=== PATIENT | male | born 2000 | race Caucasian/White ===

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

== ENCOUNTER 2021-01-10 19:40 | Emergency (ER) | payer OTHER ==
[~2021-01-10] VITALS: Ht 175.3 cm; Wt 99.8 kg
[~2021-01-10 19:40] MED LIST: IBUPROFEN 800800 MG PO
[2021-01-10 23:05] VITALS: BP 130/89
== END 2021-01-10 23:06 | disposition home or self-care (01) ==
LOC: M.ERS 19:40
DX: J02.9 Acute pharyngitis, unspecified (principal); H61.21 Impacted cerumen, right ear